=== PATIENT | male | born 1970 | race Caucasian/White ===

== ENCOUNTER 2022-11-02 13:48 | Emergency (ER) | payer OTHER ==
[~2022-11-02] VITALS: Ht 177.8 cm; Wt 127.3 kg
[2022-11-02 14:39] VITALS: BP 170/101
== END 2022-11-02 18:54 | disposition left against medical advice (07) ==
LOC: ER 13:49
DX: M54.2 Cervicalgia (principal); Z53.21 Procedure and treatment not carried out due to patient leaving prior to being seen by health care provider